=== PATIENT | female | born 1990 | race African-American/Black ===

== ENCOUNTER 2024-01-10 13:17 | Emergency (ER) | payer BC, SELFPAY ==
[2024-01-10 13:19] VITALS: BP 117/56; PULSE 80; RESP 16; TEMP 36.7; O2SAT 97
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
[2024-01-10] MEDS: Bacitracin 1 PACKET (13:56)
== END 2024-01-10 13:59 | disposition home or self-care (01) ==
PROVIDERS: Emergency Provider Emergency Medicine
DX: T31.0 Burns involving less than 10% of body surface; X13.1XXA Other contact with steam and other hot vapors, initial encounter; Y93.G3 Activity, cooking and baking; M25.531 Pain in right wrist; T23.271A Burn of second degree of right wrist, initial encounter
CPT/HCPCS: 90471; 90715; 99284; 99283

== ENCOUNTER 2024-02-12 13:12 | Emergency (ER) | payer BC, SELFPAY ==
[2024-02-12 13:14] VITALS: BP 115/82; PULSE 93; RESP 16; TEMP 37.1; O2SAT 98
--- NOTE | 2024-02-12 13:26 | W.ED.GENAD ---
Discharge Plan Disposition Patient Disposition: Home Condition: Stable Discharge Details Clinical Impression: Staph skin infection Primary Care Provider: Unknown,Unknown ED Provider: Serafin Penn Home Meds and New Rx's Prescriptions: New sulfamethoxazole-trimethoprim 800-160 mg tablet 1 tab PO BID 10 Days Qty: 20 0RF mupirocin 2 % ointment 1 applic topical TID Qty: 15 0RF Discharge Instructions Instructions: Sulfamethoxazole/Trimethoprim (By mouth), Mupirocin (On the skin), Cellulitis (ED) Additional Instructions: You were seen in the emergency department for your skin infection from your dog's leash. This is likely a staph bacteria, I am prescribing an antibiotic called Bactrim sent to [facility] and [place]. I have also prescribed a topical prescription strength antibiotic, change the dressings multiple times per day, wash the area with soap and water daily. Please return for any worsening signs of infection like increasing redness despite treatment, red streaking up the leg, fever, nausea, weakness. Discharge Data Discharge Date/Time-TO BE ENTERED AT DEPARTURE: 02/12/24 14:01 HPI General Date/Time Provider Initiated Documentation: 02/12/24 13:19. HPI Narrative: 33 year-old female presents to ED today by POV/ambulating with a chief complaint of abrasion from her dogs leash clothes-lining her in the back of the legs with onset two days ago. Quality described as weeping from wound on L posterior calf, R is more minor, no radiation to fever, lymphadenitis, severe swelling, endorses serous drainage, endorses pain worse with ambulating. Severity is described as moderate to severe. Palliating factors include nothing specific attempted, no wound care. Provoking factors include nothing specific. Patient not anticoagulated. Related Data Home Medications Medication Instructions Recorded Confirmed mupirocin 2 % topical ointment 1 applic topical TID staph skin 02/12/24 infection #15 grams sulfamethoxazole 800 1 tab PO BID cellulitis 10 days 02/12/24 mg-trimethoprim 160 mg tablet #20 tabs Previous Rx's Medication Instructions Recorded mupirocin 2 % topical ointment 1 applic topical TID staph skin 02/12/24 infection #15 grams sulfamethoxazole 800 1 tab PO BID cellulitis 10 days 02/12/24 mg-trimethoprim 160 mg tablet #20 tabs Allergies Allergy/AdvReac Type Severity Reaction Status Date / Time No Known Allergies Allergy Verified 02/12/24 13:21 General Stated Complaint: Burn NIDA: 5 Review of Systems All systems reviewed & are unremarkable except as noted in HPI and below Exam Narrative Exam Narrative: GENERAL APPEARANCE: Well-nourished, non-toxic, awake and alert, atraumatic, no acute distress. SKIN: Warm, normal for ethnicity, dry, L calf - 3x3 scabbed wound draining serous fluid, R calf 1.5x1.5cm does not appear infected, no severe induration, no fluctuant swelling HEAD: Normocephalic, atraumatic, normal hair distribution for gender/age. EYES: Normal conjunctiva, no exudates on lids/lashes. ENT: Nares patent, no circumoral cyanosis, no facial swelling NECK: Supple, trachea midline, painless cervical ROM. LUNGS/CHEST: Non-labored respirations, normal A/P diameter, symmetrical expansion, no chest wall deformity HEART (CV/PV): No peripheral edema, no JVD. ABDOMEN: Soft, non-distended, no guarding. MSK: Normal ROM, no swelling/deformity to bilateral UEs or LEs, moving all extremities without weakness, no cyanosis, spine midline without tenderness, normal curvature. NEURO: Mental Status AAOx4 - alert to person, place, time, events No facial droop, no forehead involvement. Motor: No focal weakness - strength 5/5 in bilateral UEs and LEs, proximal and distal, symmetric. Sensory: sensation intact to light touch globally. Gait antalgic. PSYCH: euthymic, cooperative, pleasant, appropriate speech Course Vital Signs Vital signs: Vital Signs Temperature 37.1 C 02/12/24 13:14 Pulse 93 H 02/12/24 13:14 Respiratory Rate 16 02/12/24 13:14 Blood Pressure 115/82 02/12/24 13:14 Pulse Oximetry 98 02/12/24 13:14 Temperature 37.1 C 02/12/24 13:14 Temperature Source Temporal Artery Scan 02/12/24 13:14 Pulse 93 H 02/12/24 13:14 Respiratory Rate 16 02/12/24 13:14 Respiratory Effort Normal 02/12/24 13:18 Blood Pressure 115/82 02/12/24 13:14 Pulse Oximetry 98 02/12/24 13:14 Oxygen Delivery Method Room Air 02/12/24 13:14 Oxygen Flow Rate 0 02/12/24 13:14 Pain Level 6 02/12/24 13:14 Medical Decision Making This dictation utilizes [id number] dictation software and may contain unedited grammatical errors. 33 y/o F presents to ED today with a chief complaint of clothes-lined by her dogs leash with two small abrasions to posterior calves that are hurting worse since onset 2 days ago, denies fever, states worse with ambulation, L leg is draining serous fluid. Patients' medical history: noncontributory. Family and social history: noncontributory. Pertinent exam findings / vital signs include SKIN: Warm, normal for ethnicity, dry, L calf - 3x3 scabbed wound draining serous fluid, R calf 1.5x1.5cm does not appear infected, no severe induration, no fluctuant swelling. Differential / pathologies of concern include cellulitis, staph skin infection, not sepsis. Diagnostic studies of: -none. Interventions of: -trial of mupirocin and Bactrim for superficial staph skin infection. ED Course/Assessment/Plan: Counseled the patient on likely staph skin infection from the leash burn that she obtained when her dog close monitor with solution. Counseled on doing a better job on wound care with topical prescription mupirocin as well as a course of Bactrim, strict return criteria for worsening despite treatment, fevers, swelling spreading up the legs, nausea or weakness. Findings not consistent with systemic signs of illness, large abscesses. Disposition of staph skin infection. Patient verbalized understanding of the plan and return to ED criteria and engaged in shared decision making. Medical Records Medical records reviewed: Yes I reviewed the patient's medical records. Quality:[facility] Health Related Social Needs: No Data to Display PFSH All Active Problems (Updated 02/12/24 @ 13:41 by HEMANTH Munroe) Staph skin infection (Acute) Social History Smoking risk assessment performed?: No
== END 2024-02-12 14:01 | disposition home or self-care (01) ==
PROVIDERS: Emergency Provider Physician Assistant
DX: S80.812A Abrasion, left lower leg, initial encounter (principal); S80.811A Abrasion, right lower leg, initial encounter; B95.7 Other staphylococcus as the cause of diseases classified elsewhere; W22.8XXA Striking against or struck by other objects, initial encounter; Y93.K1 Activity, walking an animal; Y92.89 Other specified places as the place of occurrence of the external cause
CPT/HCPCS: 99283